=== PATIENT | male | born 1995 | race Two or more races ===

== ENCOUNTER 2020-06-15 17:16 | Emergency (ER) | payer MEDICAID, OTHER ==
[~2020-06-15] VITALS: Ht 175.3 cm; Wt 86.2 kg
[2020-06-15 17:30] VITALS: BP 148/96
[2020-06-15] MEDS ORDERED: ACETAMINOPHEN 500 MG TAB PO ONE (18:00)
[2020-06-15] MEDS ORDERED: AMOXICILLIN/CLAVUL 875 MG TAB PO ONE (18:00)
== END 2020-06-15 18:26 | disposition short-term general hospital (02) ==
LOC: ER 17:16
DX: S00.531A Contusion of lip, initial encounter (principal); K04.7 Periapical abscess without sinus; F12.10 Cannabis abuse, uncomplicated; X58.XXXA Exposure to other specified factors, initial encounter; Y93.89 Activity, other specified; Y92.89 Other specified places as the place of occurrence of the external cause; Y99.8 Other external cause status
CPT/HCPCS: 70450